=== PATIENT | male | born 1965 | race African-American/Black ===

== ENCOUNTER 2017-07-04 17:20 | Emergency (ER) | payer MEDICAID, OTHER ==
[~2017-07-04] VITALS: Ht 185.4 cm; Wt 95.0 kg
[~2017-07-04 17:20] MED LIST: PROT40 PO; TRAM50TA73 PO
[2017-07-04] MEDS ORDERED: ACETAMINOPHEN 325MG TABLET PO ONE (20:45)
[2017-07-04 21:30] LABS: CLARITY URINE CLEAR (CLEAR); COLOR URINE YELLOW (YELLOW); GLUCOSE URINE NEGATIVE (NEGATIVE); KETONES URINE NEGATIVE (NEGATIVE); LEUKOCYTE ESTERASE URINE NEGATIVE (NEGATIVE); NITRITE URINE NEGATIVE (NEGATIVE); OCCULT BLOOD URINE NEGATIVE (NEGATIVE); PROTEIN URINE NEGATIVE (NEGATIVE); SPECIFIC GRAVITY URINE 1.018 (1.005-1.030); UROBILINOGEN URINE 0.2 E.U./dL (0.2-1.0)
[2017-07-04 23:21] VITALS: BP 118/68
== END 2017-07-04 23:15 | disposition home or self-care (01) ==
LOC: ER 17:20
DX: R10.31 Right lower quadrant pain (principal)
CPT/HCPCS: 81003; 99283; Z7610